=== PATIENT | male | born 1960 | race African-American/Black ===

== ENCOUNTER → 2016-11-01 | Outpatient (CLI) | payer OTHER ==
[~2016-11-01] MED LIST: ABILIFY5 MG PO; ANDROGEL5 GM TOP; BENZONATATE PO; BP MED; CLEOCIN PO; CLINDAMYCIN HC300 MG PO; FLOMAX0.4 M1 PO; GLIMEPIRIDE1 M1 PO; GLIMEPIRIDE1 MG PO; GLUCOPHAGE500 MG PO; GLUCOTROL; GLUCOTROL PO; HYDROCHLOROTHIA25 MG PO; HYDROCORTISONE; HYDROCORTISONE10 M2 PO; HYDROCORTISONE5 MG PO; INVOKANA100 MG PO; KOMBIGLYZE XR1 EAC2 PO; LOTENSIN; METFORMIN HCL500 M1; METFORMIN HCL500 M1 PO; MIRALAX17 GM PO; PROAMATINE10 MG PO; VIBRAMYCIN100 M1 PO; VOLTAREN50 MG PO; ZITHROMAX PO
--- NOTE | ~2016-11-01 | CR63 ---
[facility] A Service of [facility] & [facility] RADIOLOGY TEXT RESULTS PATIENT: KHADAR STACY LOCATION: [facility] : 60 UNIT #: [id number] AGE: [address]: Cong Jackson MD SEX: M ORDER DR: [id number] [facility] [address] [place], [place] [address] [id number] O MR#: [id number] Acc #: [id number] NAME: KHADAR STACY : 1960 SEX: M STUDY DATE/TIME: 11/01/2016 16:04 UNIT: [facility] ROOM: STUDY DESCRIPTION: CR Chest 2 View Attending Physician: Cong Jackson M.D. Referring Physician: Cong Jackson M.D. Ordering Physician: Cong Jackson M.D. Primary Care Physician: [facility] MEDICAL IMAGING REPORT This report is preliminary unless electronic signature is present STUDY PA and lateral chest dated 11/01/2016 COMPARISON Examination of 10/05/2016. HISTORY SUPPLIED Renal cell carcinoma. History of chest pain for 1 month and shortness of breath with activity for 3 months. FINDINGS PA and lateral views are obtained. The heart size is normal, vascular pattern is normal and the lungs are clear. No bony lesions are identified. There is no lymphadenopathy or pulmonary nodules. CONCLUSION No active disease. No change from prior films. Dictated by... Chago Grace M.D. THIS IS AN ELECTRONICALLY VERIFIED REPORT Chago Grace M.D. at 11/03/2016 3:10 PM KERRI/scooby TD: 11/01/2016 23:36 JOB #: [id number] MEDICAL IMAGING REPORT Page 1 of 1 COPY
[2016-11-01 17:10] LABS: ALBUMIN SERUM 3.8 g/dL (3.5-5.0); BILIRUBIN,TOTAL 0.3 mg/dL (0.2-2.0); BUN/CREATININE RATIO 11.87; CALCIUM SERUM 9.3 mg/dL (8.4-10.2); CREATININE SERUM 1.6 mg/dL (0.6-1.4); POTASSIUM 4.6 mmol/L (3.5-5.1)
== END | disposition home or self-care (01) ==
LOC: CLAB 15:39
PROVIDERS: Urology
DX: C64.9 Malignant neoplasm of unspecified kidney, except renal pelvis (principal)
CPT/HCPCS: 36415; 71020; 80053